=== PATIENT | male | born 1930 | race Caucasian/White ===

== ENCOUNTER 2018-06-08 13:46 | Inpatient (IN) | payer MEDICARE, BC ==
[~2018-06-08] VITALS: Ht 165.1 cm; Wt 65.3 kg
[2018-06-08] MEDS ORDERED: VALS160T2 GT (14:50)
[2018-06-08] MEDS ORDERED: FLUO40CA49 PO (14:50)
[2018-06-08] MEDS ORDERED: LEVO75TA7 PO (14:50)
[2018-06-08] MEDS ORDERED: ASPI81TA31 PO (14:50)
[2018-06-08] MEDS ORDERED: AMIT50TA3 PO (14:50)
[2018-06-08] MEDS ORDERED: DONE5TAB34 PO (14:50)
[2018-06-08] MEDS ORDERED: CHOL50002 PO (14:50)
[2018-06-08] MEDS ORDERED: ACET-73 PO (14:50)
[2018-06-08] MEDS ORDERED: MAGNESIUM HYDROXIDE 30 ML LIQUID UDC PO PRN (15:15)
[2018-06-08] MEDS ORDERED: TEMAZEPAM 7.5 MG CAPSULE PO PRN (15:15)
[2018-06-08] MEDS ORDERED: MAG HYDROX/AL HYDROX/SIMETH 30 ML LIQUID UDC PO PRN (15:15)
[2018-06-08 15:51] VITALS: BP 163/82
[2018-06-08] MEDS: LORAZEPAM 1 MG TABLET PO PRN (16:45)
[2018-06-08] MEDS: DONEPEZIL 5 MG TABLET PO SCH (20:11)
[2018-06-08 20:47] VITALS: BP 138/76
[2018-06-09] MEDS: LEVOTHYROXINE SODIUM 75 MCG TABLET PO SCH (06:37)
[2018-06-09 07:23] LABS: BASOPHILS % (AUTO) 0.2 % (0.0-2.0); EOSINOPHILS # (AUTO) 0.2 K/uL (0.0-0.7); EOSINOPHILS % (AUTO) 3.2 % (0.0-7.0); HEMATOCRIT 37.2 % (36.7-47.1); HEMOGLOBIN 12.4 g/dL (12.5-16.3); LYMPHOCYTES # (AUTO) 2.2 K/uL (20.0-40.0); LYMPHOCYTES % (AUTO) 40.5 % (20.5-51.5); MEAN CORPUSCULAR HEMOGLOBIN 29.2 uug (23.8-33.4); MEAN CORPUSCULAR HGB CONC 33 g/dL (32.5-36.3); MEAN CORPUSCULAR VOLUME 87.6 fL (73.0-96.2); MONOCYTES # (AUTO) 0.6 K/uL (2.0-10.0); MONOCYTES % (AUTO) 10.6 % (0.0-11.0); NEUTROPHILS # (AUTO) 2.5 K/uL (1.8-8.9); NEUTROPHILS % (AUTO) 45.5 % (38.5-71.5); PLATELET COUNT (AUTO) 138 K/uL (152-348); RED BLOOD CELL COUNT(AUTO) 4.24 MIL/uL (4.06-5.63); WHITE BLOOD COUNT (AUTO) 5.5 K/uL (3.6-10.2)
[2018-06-09 07:33] LABS: ALANINE AMINOTRANSFERASE 21 U/L (16-63); ALKALINE PHOSPHATASE 68 U/L (50-136); ASPARTATE AMINOTRANSFERASE 17 U/L (15-37); BILIRUBIN,TOTAL 0.7 mg/dL (0.2-1.0); CARBON DIOXIDE 25 mmol/L (21-32); CHLORIDE 106 mmol/L (98-107); GLUCOSE 99 mg/dL (74-106); MAGNESIUM 2.3 mg/dL (1.8-2.4); PHOSPHOROUS 3.4 mg/dL (2.5-4.9); POTASSIUM 4.1 mmol/L (3.5-5.1); TOTAL PROTEIN, SERUM 6.3 g/dL (6.4-8.2); UREA NITROGEN, BLOOD 25 mg/dL (7-18)
[2018-06-09 08:00] VITALS: BP 148/89
[2018-06-09] MEDS: VALSARTAN 160 MG TABLET PO SCH (08:23)
[2018-06-09] MEDS: ASPIRIN 81 MG TAB.CHEW PO SCH (08:23)
[2018-06-09] MEDS: LORAZEPAM 1 MG TABLET PO PRN ×2 (08:25→12:33)
[2018-06-09 08:46] LABS: THYROID STIMULATING HORMONE 1.971 mIU/mL (0.358-3.740)
[2018-06-09 16:01] VITALS: BP 135/77
[2018-06-09] MEDS ORDERED: DIVALPROEX 500 MG TABLET.DR PO SCH (17:00)
[2018-06-09] MEDS: DIVALPROEX 125 MG TABLET.DR PO SCH ×2 (17:05→20:15)
[2018-06-09 18:42] LABS: *BILIRUBIN,URIN NEGATIVE (NEGATIVE); *BLOOD, URINE NEGATIVE (NEGATIVE); *CLARITY,URINE SLIGHTLY CLOUDY (CLEAR); *COLOR,URINE YELLOW (YELLOW); *KETONES,URINE TRACE (NEGATIVE); *UROBILINOGEN,URINE 0.2 E.U./dl (NORMAL); LEUKOCYTE ESTERASE ,URINE TRACE (NEGATIVE); NITRITE, URINE NEGATIVE (NEGATIVE); PH,URINE 5.5 (5.0-8.0); UGLUCOSE NEGATIVE (NEGATIVE)
[2018-06-09 18:49] LABS: BACTERIA,URINE FEW /HPF (NONE SEEN); RBC,URINE 0-3 /HPF (0-3); SQUAMOUS EPITHELIAL CELL,UR NONE SEEN /HPF (NONE SEEN)
[2018-06-09 19:46] VITALS: BP 118/74
[2018-06-09] MEDS: DONEPEZIL 5 MG TABLET PO SCH (20:14)
[2018-06-09] MEDS: AMITRIPTYLINE HCL 25 MG TABLET PO SCH (20:15)
[2018-06-10] MEDS: LEVOTHYROXINE SODIUM 75 MCG TABLET PO SCH (06:30)
[2018-06-10 07:30] VITALS: BP 141/70
[2018-06-10] MEDS: DIVALPROEX 125 MG TABLET.DR PO SCH ×3 (08:10→20:18)
[2018-06-10] MEDS: ESCITALOPRAM OXALATE 10 MG TABLET PO SCH (08:10)
[2018-06-10] MEDS: ASPIRIN 81 MG TAB.CHEW PO SCH (08:10)
[2018-06-10] MEDS: VALSARTAN 160 MG TABLET PO SCH (08:11)
[2018-06-10 15:29] VITALS: BP 124/71
[2018-06-10 20:00] VITALS: BP 131/87
[2018-06-10] MEDS: AMITRIPTYLINE HCL 25 MG TABLET PO SCH (20:18)
[2018-06-10] MEDS: DONEPEZIL 5 MG TABLET PO SCH (20:18)
[2018-06-11] MEDS: LEVOTHYROXINE SODIUM 75 MCG TABLET PO SCH (06:12)
[2018-06-11 07:30] VITALS: BP 127/88
[2018-06-11] MEDS: ASPIRIN 81 MG TAB.CHEW PO SCH (08:34)
[2018-06-11] MEDS: ESCITALOPRAM OXALATE 10 MG TABLET PO SCH (08:34)
[2018-06-11] MEDS: DIVALPROEX 125 MG TABLET.DR PO SCH ×3 (08:34→20:21)
[2018-06-11] MEDS: VALSARTAN 160 MG TABLET PO SCH (08:36)
[2018-06-11] MEDS: LORAZEPAM 1 MG TABLET PO PRN (12:25)
[2018-06-11 16:06] VITALS: BP 139/82
[2018-06-11 20:00] VITALS: BP 146/89
[2018-06-11] MEDS: DONEPEZIL 5 MG TABLET PO SCH (20:21)
[2018-06-11] MEDS: AMITRIPTYLINE HCL 25 MG TABLET PO SCH (20:21)
[2018-06-12] MEDS: LEVOTHYROXINE SODIUM 75 MCG TABLET PO SCH (06:52)
[2018-06-12 07:30] VITALS: BP 127/87
[2018-06-12] MEDS: ASPIRIN 81 MG TAB.CHEW PO SCH (09:12)
[2018-06-12] MEDS: ESCITALOPRAM OXALATE 10 MG TABLET PO SCH (09:12)
[2018-06-12] MEDS: DIVALPROEX 125 MG TABLET.DR PO SCH ×3 (09:12→20:08)
[2018-06-12] MEDS: VALSARTAN 160 MG TABLET PO SCH (09:15)
[2018-06-12 16:00] VITALS: BP 147/76
[2018-06-12 20:06] VITALS: BP 117/89
[2018-06-12] MEDS: LORAZEPAM 1 MG TABLET PO PRN (20:06)
[2018-06-12] MEDS: DONEPEZIL 5 MG TABLET PO SCH (20:07)
[2018-06-12] MEDS: CEphaleXIN 500 MG CAPSULE PO SCH (20:07)
[2018-06-12] MEDS: AMITRIPTYLINE HCL 25 MG TABLET PO SCH (21:13)
[2018-06-13] MEDS: LEVOTHYROXINE SODIUM 75 MCG TABLET PO SCH (06:03)
[2018-06-13 07:30] VITALS: BP 137/76
[2018-06-13] MEDS: ASPIRIN 81 MG TAB.CHEW PO SCH (08:26)
[2018-06-13] MEDS: ESCITALOPRAM OXALATE 10 MG TABLET PO SCH (08:26)
[2018-06-13] MEDS: CEphaleXIN 500 MG CAPSULE PO SCH ×2 (08:27→20:08)
[2018-06-13] MEDS: DIVALPROEX 125 MG TABLET.DR PO SCH ×3 (08:27→21:00)
[2018-06-13] MEDS: LORAZEPAM 1 MG TABLET PO PRN (08:28)
[2018-06-13] MEDS: VALSARTAN 160 MG TABLET PO SCH (08:31)
[2018-06-13 15:04] VITALS: BP 112/67
[2018-06-13] MEDS: AMITRIPTYLINE HCL 25 MG TABLET PO SCH (20:08)
[2018-06-13] MEDS: DONEPEZIL 5 MG TABLET PO SCH (20:08)
[2018-06-13 20:14] VITALS: BP 111/77
[2018-06-14] MEDS: LEVOTHYROXINE SODIUM 75 MCG TABLET PO SCH (06:13)
[2018-06-14 07:30] VITALS: BP 114/70
[2018-06-14] MEDS: DIVALPROEX 125 MG TABLET.DR PO SCH ×3 (08:39→20:14)
[2018-06-14] MEDS: ESCITALOPRAM OXALATE 10 MG TABLET PO SCH (08:39)
[2018-06-14] MEDS: ASPIRIN 81 MG TAB.CHEW PO SCH (08:39)
[2018-06-14] MEDS: CEphaleXIN 500 MG CAPSULE PO SCH ×2 (08:39→20:14)
[2018-06-14] MEDS: VALSARTAN 160 MG TABLET PO SCH (08:42)
[2018-06-14] MEDS: LORAZEPAM 1 MG TABLET PO PRN ×2 (10:51→15:28)
[2018-06-14 16:45] VITALS: BP 135/53
[2018-06-14 20:00] VITALS: BP 115/67
[2018-06-14] MEDS: DONEPEZIL 5 MG TABLET PO SCH (20:14)
[2018-06-14] MEDS: AMITRIPTYLINE HCL 25 MG TABLET PO SCH (20:23)
[2018-06-15] MEDS: LEVOTHYROXINE SODIUM 75 MCG TABLET PO SCH (06:05)
[2018-06-15 07:30] VITALS: BP 129/78
[2018-06-15] MEDS: LORAZEPAM 1 MG TABLET PO PRN ×2 (08:12→15:08)
[2018-06-15] MEDS: DIVALPROEX 125 MG TABLET.DR PO SCH ×3 (08:45→21:29)
[2018-06-15] MEDS: ASPIRIN 81 MG TAB.CHEW PO SCH (08:45)
[2018-06-15] MEDS: ESCITALOPRAM OXALATE 10 MG TABLET PO SCH (08:45)
[2018-06-15] MEDS: CEphaleXIN 500 MG CAPSULE PO SCH ×2 (08:46→21:29)
[2018-06-15] MEDS: VALSARTAN 160 MG TABLET PO SCH (08:47)
[2018-06-15] MEDS: ACETAMINOPHEN 325 MG TABLET PO PRN (15:08)
[2018-06-15 16:39] VITALS: BP 102/73
[2018-06-15 20:01] VITALS: BP 99/52
[2018-06-15] MEDS: AMITRIPTYLINE HCL 25 MG TABLET PO SCH (21:29)
[2018-06-15] MEDS: DONEPEZIL 5 MG TABLET PO SCH (21:29)
[2018-06-16] MEDS: LEVOTHYROXINE SODIUM 75 MCG TABLET PO SCH (06:07)
[2018-06-16 07:30] VITALS: BP 123/58
[2018-06-16] MEDS: LORAZEPAM 1 MG TABLET PO PRN ×2 (08:16→16:38)
[2018-06-16] MEDS: CEphaleXIN 500 MG CAPSULE PO SCH ×2 (08:46→20:51)
[2018-06-16] MEDS: ESCITALOPRAM OXALATE 10 MG TABLET PO SCH (08:46)
[2018-06-16] MEDS: ASPIRIN 81 MG TAB.CHEW PO SCH (08:46)
[2018-06-16] MEDS: DIVALPROEX 125 MG TABLET.DR PO SCH (08:46)
[2018-06-16] MEDS: VALSARTAN 160 MG TABLET PO SCH (08:48)
[2018-06-16 15:30] VITALS: BP 102/59
[2018-06-16] MEDS: DIVALPROEX 250 MG TABLET.DR PO SCH ×2 (16:38→20:51)
[2018-06-16] MEDS ORDERED: DIVALPROEX 125 MG TABLET.DR PO SCH ×2 (17:00→21:00)
[2018-06-16 19:49] VITALS: BP 118/77
[2018-06-16] MEDS: AMITRIPTYLINE HCL 25 MG TABLET PO SCH (20:51)
[2018-06-16] MEDS: DONEPEZIL 5 MG TABLET PO SCH (20:51)
[2018-06-17] MEDS: LEVOTHYROXINE SODIUM 75 MCG TABLET PO SCH (06:25)
[2018-06-17 07:30] VITALS: BP 103/72
[2018-06-17] MEDS: ESCITALOPRAM OXALATE 10 MG TABLET PO SCH (08:38)
[2018-06-17] MEDS: VALSARTAN 160 MG TABLET PO SCH (08:38)
[2018-06-17] MEDS: CEphaleXIN 500 MG CAPSULE PO SCH (08:38)
[2018-06-17] MEDS: ASPIRIN 81 MG TAB.CHEW PO SCH (08:38)
[2018-06-17] MEDS: LORAZEPAM 1 MG TABLET PO PRN ×2 (08:38→13:21)
[2018-06-17] MEDS: DIVALPROEX 250 MG TABLET.DR PO SCH ×3 (08:39→21:06)
[2018-06-17] MEDS: ACETAMINOPHEN 325 MG TABLET PO PRN (13:21)
[2018-06-17 15:49] VITALS: BP 116/77
[2018-06-17] MEDS: DONEPEZIL 5 MG TABLET PO SCH (21:05)
[2018-06-17] MEDS: AMITRIPTYLINE HCL 25 MG TABLET PO SCH (21:07)
[2018-06-18] MEDS: LEVOTHYROXINE SODIUM 75 MCG TABLET PO SCH (06:45)
[2018-06-18 07:30] VITALS: BP 155/75
[2018-06-18 08:20] VITALS: BP 155/72
[2018-06-18] MEDS: ASPIRIN 81 MG TAB.CHEW PO SCH (08:36)
[2018-06-18] MEDS: ESCITALOPRAM OXALATE 10 MG TABLET PO SCH (08:36)
[2018-06-18] MEDS: DIVALPROEX 250 MG TABLET.DR PO SCH (08:36)
[2018-06-18 08:39] VITALS: BP 155/72
[2018-06-18] MEDS: VALSARTAN 160 MG TABLET PO SCH (08:39)
== END 2018-06-18 14:00 | DRG 885 ==
LOC: ER 13:48 → GPS 14:39
PROVIDERS: ADMIT Psychiatry & Neurology Psychiatry; ATTEND Nurse Practitioner Acute Care
DX: F32.3 Major depressive disorder, single episode, severe with psychotic features (principal); N39.0 Urinary tract infection, site not specified; F02.81 Dementia in other diseases classified elsewhere, unspecified severity, with behavioral disturbance; B96.20 Unspecified Escherichia coli [E. coli] as the cause of diseases classified elsewhere; G30.9 Alzheimer's disease, unspecified; S61.512D Laceration without foreign body of left wrist, subsequent encounter; X78.0XXD Intentional self-harm by sharp glass, subsequent encounter; E03.9 Hypothyroidism, unspecified; E78.5 Hyperlipidemia, unspecified; I10 Essential (primary) hypertension
CPT/HCPCS: 36415; 71045; 80164; 83735; 84100; 84443; 85025; 87077; 87086; 93005; 97110; 97112; 97116; 97530; A4663; J3490